=== PATIENT | male | born 1995 | race Caucasian/White ===

== ENCOUNTER 2018-08-26 20:41 | Emergency (ER) | payer OTHER ==
--- NOTE | 2018-08-26 21:25 | EDPHY ---
General Time Seen by Provider: 08/26/18 21:05 Narrative: CLINICAL IMPRESSION: Right lower quadrant pain ASSESSMENT/PLAN: Patient is a 23-year-old male with a significant history of ulcerative colitis who presents to the emergency department with decreased appetite and escalating right lower quadrant pain since yesterday. Patient is afebrile, not toxic appearing and in no acute distress. His abdomen is soft, he is tender in the right and left lower quadrants on my examination, no peritoneal signs. His vital signs were reviewed, no findings to suggest sepsis or serious bacterial illness. CBC revealed no evidence of leukocytosis. BMP with no evidence of metabolic abnormality or acute kidney injury. Lipase and hepatic panel were both grossly normal. Proceeded with CT with concern for colitis flare, abscess and other etiologies to include appendicitis. CT abdomen and pelvis revealed a moderate amount of stool throughout the colon, a normal appearing appendix and trace fluid in the pelvis of unclear etiology. History and physical examination is consistent with right lower quadrant pain and CT findings suggestive of constipation. There were no findings to suggest acute pancreatitis, acute cholecystitis, acute appendicitis, kidney stone, pyelonephritis, abscess, perforation, obstruction or acute acute colitis flare. The patient denied any need for pain medication in the emergency department, he will continue Tylenol as needed for pain. He is well established with [facility] Dr. Madden and will call to schedule follow-up for repeat examination. Patient does not have a primary care doctor, I provided a referral for him. On repeat examination the patient is very reassured by his findings in the emergency department. His abdomen remained soft with mild tenderness to palpation in the right and left lower quadrants, no peritoneal signs or evidence of a surgical abdomen. His vital signs remained stable. Conservative return precautions were discussed-patient will return for fever, significantly worsening or uncontrolled pain, vomiting or for any other concerning symptom. Patient verbalizes understanding and he is in agreement with this plan. DIFFERENTIAL DX: Abdominal pain including but not limited to appendicitis, cholecystitis, gastritis and urinary tract infection. ED COURSE: 2129: Case discussed with Dr. Augustin 2218: Case discussed with Dr. Harper, CT revealed moderate constipation, trace fluid in the pelvis of unclear origin. Normal appearing appendix. CHIEF COMPLAINT: Right lower quadrant pain, decreased appetite HPI: Patient is a 23-year-old male with a significant history of ulcerative colitis who presents to the emergency department with escalating right lower quadrant pain and decreased appetite. Patient reports yesterday he had a sudden onset generalized lower abdominal pain that waxed and waned in intensity. It seemed to worsen when he was up, around and moving. Patient went to bed, woke up feeling like things were better however had sudden onset of worsening pain now localizing to his right lower quadrant. He denies any fever or chills. He has had no nausea or vomiting however his appetite has been very low today. He does feel that he has increased flatus and has had multiple loose stools which is unusual for him. Patient has been stable on lialda for the last 3 years for his ulcerative colitis, denies any frequent flares. He has had no abdominal surgeries. He denies any urinary symptoms to include dysuria, hematuria or increased frequency. He has no testicular pain or testicular swelling. He denies any melena or hematochezia. He is followed by [facility] Dr. Madden, had reassuring laboratory studies done in July. Last colonoscopy was last year. PMH: Ulcerative colitis Pertinent Past Surgical History: Denies Family History: Noncontributory Social History: Denies frequent alcohol use, denies illicit drug use and denies cigarette smoking REVIEW OF SYSTEMS: All other systems negative Constitutional: Decreased appetite. No fever, no chills. Eyes: No discharge, vision change ENT: No sore throat, congestion, ear pain. Cardiovascular: No chest pain, no palpitations. Respiratory: No cough, no shortness of breath. Gastrointestinal: Abdominal pain, multiple loose stools. Denies nausea or vomiting. Genitourinary: No hematuria, dysuria, flank pain. Musculoskeletal: No back pain, joint swelling, joint pain, myalgias. Skin: No rashes, color change. Neurological: No headache, dizziness, weakness. PHYSICAL EXAM: General Appearance: Patient is well-appearing, he is in no acute distress. HENT: Normocephalic, atraumatic. Bilateral external ears are normal. Bilateral tympanic membranes are normal with pearly delong reflex. Nares are clear, mucosa is pink. Oropharynx is clear, uvula is midline. There is no tonsillar enlargement or exudate. The dentition is normal. Eyes: PERRLA, no acute vision change, nystagmus, swelling, discharge, pain or photosensitivity. Conjunctiva pink, no pallor or injection Neck: Supple, nontender, no lymphadenopathy, no midline pain, FROM, no meningismus. Respiratory: There are no retractions, lungs are clear to auscultation. Cardiac: Regular rate and rhythm, no murmurs or gallops. Gastrointestinal: Patient's abdomen is soft and nondistended. Bowel sounds are normal. There are no masses, hernias appreciated. Patient is tender in the right lower and left lower quadrants. Negative Allen sign. Neurological: Alert and oriented x 3, CN 2-12 grossly intact, normal gait no ataxia, DTR's intact, normal sensation and strength Skin: Warm, dry, no rashes, no nodules on palpation. Musculoskeletal: Extremities are symmetrical, full range of motion, no tenderness, deformity, swelling, or erythema. Psychiatric: Patient is oriented X 3, there is no agitation. MEDICAL DECISION MAKING: Patient was seen independently. Secondary supervising physician at time of evaluation was Dr. Augustin, she did not evaluate this patient. Diagnosis: Right lower quadrant pain. New, requires workup Summary: See Assessment and Plan for summary of ED visit Clinical lab tests: ordered / reviewed. Independent visualization of images, tracing, or specimens: Yes. Decision to obtain medical records or history from someone other than the patient: No Review / Summarize previous medical records: Yes Discussed patient with another provider: Yes, Dr. Augustin Patient Progress: Stable, discharge. - Diagnostics Imaging Results: Imaging Impressions Abdomen CT 08/26/18 21:26 Impression: 1. Trace free fluid in the pelvis of unclear etiology. 2. Moderate stool in the colon 3. Normal appendix. Findings discussed with IRVIN Crawford 08/26/2018 at 22:18. - History Smoking Status: Never smoked - Objective Vital Signs: Initial Vital Signs Temperature (C) 36.6 C 08/26/18 20:48 Heart Rate 74 08/26/18 20:48 Respiratory Rate 16 08/26/18 20:48 Blood Pressure 129/63 H 08/26/18 20:48 O2 Sat (%) 97 08/26/18 20:48 O2 Delivery Mode Room Air Allergies/Adverse Reactions: No Known Allergies Allergy (Unverified 08/26/18 20:48) Home Medications: Medication Instructions Recorded Lialda 08/26/18 Laboratory Results: Laboratory Results 08/26/18 21:09 08/26/18 21:09 08/26/18 08/26/18 08/26/18 21:42 21:09 21:09 WBC 7.48 10^3/uL 10^3/uL (3.80-9.50) RBC 5.37 10^6/uL 10^6/uL (4.40-6.38) Hgb 16.2 g/dL g/dL (13.7-17.5) POC Hgb 16.0 gm/dL gm/dL (13.7-17.5) Hct 46.4 % % (40.0-51.0) POC Hct 47 % % (40-51) MCV 86.4 fL fL (81.5-99.8) MCH 30.2 pg pg (27.9-34.1) MCHC 34.9 g/dL g/dL (32.4-36.7) RDW 12.0 % % (11.5-15.2) Plt Count 172 10^3/uL 10^3/uL (150-400) MPV 9.8 fL fL (8.7-11.7) Neut % (Auto) 70.6 % % (39.3-74.2) Lymph % (Auto) 20.1 % % (15.0-45.0) Evangeline % (Auto) 7.1 % % (4.5-13.0) Eos % (Auto) 2.0 % % (0.6-7.6) Baso % (Auto) 0.1 % L % (0.3-1.7) Nucleat RBC Rel Count 0.0 % % (0.0-0.2) Absolute Neuts (auto) 5.28 10^3/uL 10^3/uL (1.70-6.50) Absolute Lymphs (auto) 1.50 10^3/uL 10^3/uL (1.00-3.00) Absolute Monos (auto) 0.53 10^3/uL 10^3/uL (0.30-0.80) Absolute Eos (auto) 0.15 10^3/uL 10^3/uL (0.03-0.40) Absolute Basos (auto) 0.01 10^3/uL L 10^3/uL (0.02-0.10) Absolute Nucleated RBC 0.00 10^3/uL 10^3/uL (0-0.01) Immature Gran % 0.1 % % (0.0-1.1) Immature Gran # 0.01 10^3/uL 10^3/uL (0.00-0.10) POC Sodium 141 mEq/L mEq/L (135-145) Sodium 136 mEq/L mEq/L (135-145) POC Potassium 3.6 mEq/L mEq/L (3.3-5.0) Potassium 4.0 mEq/L mEq/L (3.5-5.2) POC Chloride 102 mEq/L mEq/L (97-110) Chloride 101 mEq/L mEq/L (97-110) Carbon Dioxide 22 mEq/l mEq/l (22-31) POC Total CO2 27 mEq/L mEq/L (22-31) Anion Gap 13 mEq/L mEq/L (6-14) POC BUN 13 mg/dL mg/dL (7-23) BUN 15 mg/dL mg/dL (7-23) Creatinine 0.9 mg/dL mg/dL (0.7-1.3) POC Creatinine 1.0 mg/dL mg/dL (0.7-1.3) Estimated GFR > 60 Glucose 88 mg/dL mg/dL (70-100) POC Glucose 86 mg/dL mg/dL (70-100) Calcium 9.6 mg/dL mg/dL (8.5-10.4) Total Bilirubin Conjugated Bilirubin Unconjugated Bilirubin AST ALT Alkaline Phosphatase Total Protein Albumin Lipase 08/26/18 21:05 WBC RBC Hgb POC Hgb Hct POC Hct MCV MCH MCHC RDW Plt Count MPV Neut % (Auto) Lymph % (Auto) Evangeline % (Auto) Eos % (Auto) Baso % (Auto) Nucleat RBC Rel Count Absolute Neuts (auto) Absolute Lymphs (auto) Absolute Monos (auto) Absolute Eos (auto) Absolute Basos (auto) Absolute Nucleated RBC Immature Gran % Immature Gran # POC Sodium Sodium 136 mEq/L mEq/L (135-145) POC Potassium Potassium 4.0 mEq/L mEq/L (3.5-5.2) POC Chloride Chloride 100 mEq/L mEq/L (97-110) Carbon Dioxide 24 mEq/l mEq/l (22-31) POC Total CO2 Anion Gap 12 mEq/L mEq/L (6-14) POC BUN BUN 15 mg/dL mg/dL (7-23) Creatinine 0.9 mg/dL mg/dL (0.7-1.3) POC Creatinine Estimated GFR > 60 Glucose 87 mg/dL mg/dL (70-100) POC Glucose Calcium 9.7 mg/dL mg/dL (8.5-10.4) Total Bilirubin 0.6 mg/dL mg/dL (0.1-1.4) Conjugated Bilirubin 0.3 mg/dL mg/dL (0.0-0.5) Unconjugated Bilirubin 0.3 mg/dL mg/dL (0.0-1.1) AST 32 IU/L IU/L (17-59) ALT 30 IU/L IU/L (21-72) Alkaline Phosphatase 85 IU/L IU/L (38-126) Total Protein 7.5 g/dL g/dL (6.3-8.2) Albumin 4.9 g/dL g/dL (3.5-5.0) Lipase 103 IU/L IU/L (23-300) Point of Care Test Results: Chemistry 08/26/18 21:42 POC Sodium 141 mEq/L mEq/L (135-145) POC Potassium 3.6 mEq/L mEq/L (3.3-5.0) POC Chloride 102 mEq/L mEq/L (97-110) POC Total CO2 27 mEq/L mEq/L (22-31) POC BUN 13 mg/dL mg/dL (7-23) POC Creatinine 1.0 mg/dL mg/dL (0.7-1.3) POC Glucose 86 mg/dL mg/dL (70-100) ISTAT H&H 08/26/18 21:42 POC Hgb 16.0 gm/dL gm/dL (13.7-17.5) POC Hct 47 % % (40-51) Departure - Departure Disposition: Home, Routine, Self-Care Clinical Impression: Abdominal pain in male Condition: Good Instructions: Abdominal Pain (ED) Additional Instructions: DISCHARGE INSTRUCTIONS FROM YOUR DOCTOR Thank you for visiting our emergency department today. Please keep in mind that discharge from the emergency department does not mean that there is nothing wrong - it simply means that we have not identified an emergency condition that requires further evaluation or treatment in the hospital. You should always plan to follow up with primary care for re-evaluation of your condition in the next 2-3 days. Rest, push non-diuretic, non-caffeinated fluids, clear liquid diet, then a BRAT diet (bananas, rice, applesauce, toast), then slowly advance diet to normal. Attempt small frequent meals. Your found to have moderate constipation on your CT, it is important that you drink a lot of water, increase her fiber intake. You may also consider adding Metamucil fiber supplementation to her diet. You may also use MiraLax as needed for more severe constipation, please follow the directions on the packaging. Schedule a follow-up appointment with your primary care physician in the next 1- 2 days for re-evaluation. Bring a copy of your test results with you to that appointment. Return for increased or unmanageable pain, new site or character of pain, flank pain, groin pain, pelvic pain, development of fever, chills, recurrent vomiting , vomiting blood or coffee grounds, diarrhea, constipation, bloody stools, black tarry stools, burning or pain with urination, bloody urine, inability to urinate, decreased urine output or other signs of dehydration, dizziness, weakness, fainting, difficulty breathing or swallowing, chest pain, or for any other new, worsening or worrisome symptoms. People present with illnesses and injuries in different ways, and it is always possible that we have missed something. You may always return for re-evaluation if symptoms worsen or if they are not improving or if you develop new/different symptoms. Again, thank you for choosing our emergency department. We hope that you feel better. Referrals: Fish Madden MD [Medical Doctor] - 2-3 days, call for appt. Melvin Villegas DO [Doctor of Osteopathy] - Follow Up Only If Needed (Please establish care with a primary care provider as needed while you are living here. )
[2018-08-26 21:50] LABS: PLATELET COUNT 172 10^3/uL (150-400)
[2018-08-26 23:07] VITALS: BP 117/87
== END 2018-08-26 23:07 | disposition home or self-care (01) ==
DX: R10.31 Right lower quadrant pain (principal)
CPT/HCPCS: 82435-PO; 82565-PO; 82947-PO; 84132-PO; 84295-PO; 84520-PO; 85014-ER